=== PATIENT | female | born 1985 | race Caucasian/White ===

== ENCOUNTER 2018-03-29 13:35 | Emergency (ER) | payer BC ==
[2018-03-29 13:58] VITALS: BP 126/88
--- NOTE | 2018-03-29 15:09 | UC ---
Neck Pain HPI - HPI Summary HPI Summary: Pt c/o gradual onset of painful "lumps" left side neck and at base of left side occipital. Denies recent illness, fever, chills, sore throat, ear ache or any other symptoms. - History of Current Complaint Hx Obtained From: Patient Hx Last Menstrual Period: 03/07/18 ?: No Onset/Duration Of Injury/Symptoms: Days Timing: Constant Onset/Duration: Gradual Onset, Lasting Days, Still Present Severity: Moderate Pain Intensity: 8 Location: Discrete At: - left side and left base of skull Character: Dull, Aching, Stiff Aggravating Factors: Position, Movement Alleviating Factors: Heat Associated Signs & Symptoms: Positive: Negative - Risk Factors Meningitis Risk Factors: Negative <Zenobia Aguiar NP - Last Filed: 03/29/18 16:18> <Nan Jessica - Last Filed: 03/29/18 20:22> - History of Current Complaint Chief Complaint: UCGeneralIllness Stated Complaint: SKIN COMPLAINT Time Seen by Provider: 03/29/18 14:25 - Allergies/Home Medications Allergies/Adverse Reactions: Allergies Allergy/AdvReac Type Severity Reaction Status Date / Time No Known Allergies Allergy Verified 03/29/18 13:54 Home Medications: Home Medications Aspirin/Acetaminophen/Caffeine [Excedrin Migraine Caplet] 2 tab PO DAILY PRN 01/15 [History Confirmed 03/29/18] PMH/Surg Hx/FS Hx/Imm Hx Previously Healthy: Yes - Surgical History Surgical History: Yes Surgery Procedure, Year, and Place: x2. appendectomy. tubal litigation - Family History Known Family History: Positive: Cardiac Disease - Social History Occupation: Employed Full-time Lives: With Family Alcohol Use: Occasionally Substance Use Type: None Smoking Status (MU): Heavy Every Day Tobacco Smoker Type: Cigarettes Amount Used/How Often: 1/2 PPD Have You Smoked in the Last Year: Yes <Zenobia Aguiar NP - Last Filed: 03/29/18 16:18> Review Of Systems Constitutional: Positive: Negative Skin: Positive: Negative Eyes: Positive: Negative ENT: Positive: Negative Respiratory: Positive: Negative Cardiovascular: Positive: Negative Gastrointestinal: Positive: Negative Genitourinary: Positive: Negative Musculoskeletal: Positive: Myalgia Neurological: Positive: Negative Psychological: Positive: Negative All Other Systems Reviewed And Are Negative: Yes <Zenobia Aguiar NP - Last Filed: 03/29/18 16:18> Physical Exam - Summary Physical Exam Summary: Pt tearful during exam. sTates that her neck hurts. Also states she works over 40 hours per week and is "exhausted" Triage Information Reviewed: Yes Appearance: Pain Distress Vital Signs: Initial Vital Signs Temp 99.3 F 03/29/18 13:49 Pulse 88 03/29/18 13:49 Resp 16 03/29/18 13:49 BP 126/88 03/29/18 13:49 Pulse Ox 100 03/29/18 13:49 Eye Exam: Normal ENT Exam: Normal Neck: Positive: Tenderness @, Enlarged Nodes @ - left side occipital, left side cervical chains Respiratory Exam: Normal Cardiovascular Exam: Normal Abdominal Exam: Normal Abdomen Description: Positive: Nontender Musculoskeletal Exam: Normal Neurological Exam: Normal Psychological Exam: Normal Skin Exam: Normal <Zenobia Aguiar NP - Last Filed: 03/29/18 16:18> Vital Signs: Initial Vital Signs Temp 99.3 F 03/29/18 13:49 Pulse 88 03/29/18 13:49 Resp 16 03/29/18 13:49 BP 126/88 03/29/18 13:49 Pulse Ox 100 03/29/18 13:49 <Nan Jessica - Last Filed: 03/29/18 20:22> Neck Pain Course/Dx - Course Course Of Treatment: I discussed with ept the diagnosis of lymphadenopathy and the need to follow up with a PCP for further evaluation and treatment if no imporvement. - Differential Dx/Diagnosis Differential Dx/HQI/PQRI: Meningitis, Sprain, Torticollis Provider Diagnoses: LYmphadenopathy <Zenobia Aguiar NP - Last Filed: 03/29/18 16:18> Discharge - Sign-Out/Discharge Documenting (check all that apply): Discharge/Admit/Transfer - Billing Disposition and Condition Condition: STABLE Disposition: HOME <Zenobia Aguiar NP - Last Filed: 03/29/18 16:18> - Billing Disposition and Condition Condition: STABLE Disposition: HOME <Nan Jessica - Last Filed: 03/29/18 20:22> - Discharge Plan Condition: Stable Disposition: HOME Patient Education Materials: Lymphadenopathy (ED) Forms: *Work Release Referrals: [facility] [Outside] No Primary Care Phys,NOPCP [Primary Care Provider] - Attestation Statement User Type: Provider - I was available for consult. This patient was seen by the MADISYN. The patient was not presented to, seen by, or examined by me. -Ashley <Nan Jessica - Last Filed: 03/29/18 20:22>
== END 2018-03-29 15:18 | disposition home or self-care (01) ==
LOC: UCCORT 13:35
DX: R59.1 Generalized enlarged lymph nodes (principal); F17.210 Nicotine dependence, cigarettes, uncomplicated
CPT/HCPCS: 99201; G0463